=== PATIENT | female | born 1995 | race American Indian/Alaskan Native ===

== ENCOUNTER 2021-01-19 07:40 | Outpatient (CLI) | payer MEDICAID ==
[2021-01-19] MEDS ORDERED: MORPHINE 2 MG/1 ML INJ IM STA (08:18)
[2021-01-19] MEDS ORDERED: LACTATED RINGERS 1,000 ML IV SCH (09:45)
[2021-01-19] MEDS ORDERED: fentaNYL 100 MCG/2 ML INJ IV ONE (10:00)
[2021-01-19 11:49] VITALS: BP 91/52
== END 2021-01-19 11:32 | disposition home or self-care (01) ==
LOC: TRG 07:40 → APU 07:42 → TRG 11:32
DX: O47.02 False labor before 37 completed weeks of gestation, second trimester (principal); O99.352 Diseases of the nervous system complicating pregnancy, second trimester; G43.909 Migraine, unspecified, not intractable, without status migrainosus; Z3A.22 22 weeks gestation of pregnancy; Z87.891 Personal history of nicotine dependence
CPT/HCPCS: 59025; 96361; 96365; 96372; J2270; J3010; J7120; 96360; 96374

== ENCOUNTER 2021-03-07 13:24 | Emergency (ER) | payer MEDICAID ==
[2021-03-07 13:47] VITALS: BP 117/69
--- NOTE | 2021-03-08 17:59 | Electrocardiograph Report ---
[facility] Test Date: 2021-03-07 Test Time: 13:58:49 Pat Name: LYNDA FERNANDEZ Department: Room: Gender: F [employer]: : 1995 Requested By: LEDA SOLIS Order Number: [id number] Reading MD: Elizabeth Tolbert Measurements Intervals [place] Rate: 94 P: 61 FL: 102 QRS: 61 QRSD: 68 T: 27 QT: 342 QTc: 429 Interpretive Statements Sinus rhythm No previous ECG available for comparison Electronically Signed On 03-08-2021 17:59:28 EDT by Elizabeth Tolbert
== END 2021-03-07 22:55 | disposition left against medical advice (07) ==
LOC: ED 13:24
DX: R55 Syncope and collapse (principal); Z53.21 Procedure and treatment not carried out due to patient leaving prior to being seen by health care provider
CPT/HCPCS: 93005